=== PATIENT | female | born 1930 | race Caucasian/White ===

== ENCOUNTER 2016-05-28 09:28 | Outpatient (CLI) | payer MEDICARE, OTHER ==
[2016-05-28 10:38] LABS: ALT (SGPT) 15 U/L (0-55); AST (SGOT) 21 U/L (5-34); Alkaline Phosphatase 92 U/L (40-150); Anion Gap 13 mmol/L (10-20); BUN (Urea Nitrogen) 19 mg/dL (9.8-20.1); Bilirubin, Total 0.7 mg/dL (0.2-1.2); Calc. Creatinine Clearance 0 mL/min (70-130); Calcium 9.5 mg/dL (7.8-10.44); Carbon Dioxide 32 mmol/L (23-31); Chloride 104 mmol/L (98-107); Estimated GFR-MDRD 42; Globulin 2.8 g/dL (2.4-3.5); LDL Cholesterol, Calculated 63 mg/dL; Protein, Total 6.4 g/dL (5.8-8.1)
== END 2016-05-28 09:29 | disposition home or self-care (01) ==
LOC: BURLAB 09:28
PROVIDERS: ATTEND Internal Medicine Cardiovascular Disease
DX: I25.10 Atherosclerotic heart disease of native coronary artery without angina pectoris (principal)
CPT/HCPCS: 36415; 80053; 80061

== ENCOUNTER 2016-06-04 10:02 | Outpatient (CLI) | payer MEDICARE, OTHER ==
[2016-06-04 11:49] LABS: AST (SGOT) 24 U/L (5-34); Anion Gap 18 mmol/L (10-20); Bilirubin, Total 0.5 mg/dL (0.2-1.2); Calcium 9.1 mg/dL (7.8-10.44); Carbon Dioxide 25 mmol/L (23-31); Chloride 106 mmol/L (98-107)
[2016-06-04 12:03] LABS: Hemoglobin A1c 6.5 % (4.0-6.0)
[2016-06-04 12:04] LABS: ALT (SGPT) 20 U/L (0-55); Alkaline Phosphatase 92 U/L (40-150); BUN (Urea Nitrogen) 24 mg/dL (9.8-20.1); Calc. Creatinine Clearance 0 mL/min (70-130); Estimated GFR-MDRD 39; Globulin 2.9 g/dL (2.4-3.5); Protein, Total 6.6 g/dL (5.8-8.1)
[2016-06-04 13:19] LABS: LDL Cholesterol, Calculated 64 mg/dL
== END 2016-06-04 10:03 | disposition home or self-care (01) ==
LOC: BURLAB 10:02
PROVIDERS: ATTEND Family Medicine
DX: E11.9 Type 2 diabetes mellitus without complications (principal)
CPT/HCPCS: 36415; 80053; 80061; 83036

== ENCOUNTER 2016-08-27 09:21 | Outpatient (CLI) | payer MEDICARE, OTHER ==
[2016-08-27 10:03] LABS: Hemoglobin A1c 6.7 % (4.0-6.0)
== END 2016-08-27 09:22 | disposition home or self-care (01) ==
LOC: BURLAB 09:21
PROVIDERS: ATTEND Family Medicine
DX: E11.9 Type 2 diabetes mellitus without complications (principal); R53.83 Other fatigue
CPT/HCPCS: 36415; 83036; 84443

== ENCOUNTER 2016-10-22 10:11 | Outpatient (CLI) | payer MEDICARE, OTHER ==
[2016-10-22 11:37] LABS: Anion Gap 16 mmol/L (10-20); BUN (Urea Nitrogen) 41 mg/dL (9.8-20.1); Calc. Creatinine Clearance 0 mL/min (70-130); Calcium 9.3 mg/dL (7.8-10.44); Carbon Dioxide 25 mmol/L (23-31); Chloride 103 mmol/L (98-107); Estimated GFR-MDRD 29; Glucose 183 mg/dL (83-110); Potassium 4.4 mmol/L (3.5-5.1); Sodium 140 mmol/L (136-145)
[2016-10-22 12:15] LABS: Hemoglobin 11.3 g/dL (12.0-16.0); Mean Corpuscular HGB CONC 33.3 g/dL (32.0-36.0); Mean Corpuscular Hemoglobin 28.4 pg (27.0-31.0); Mean Corpuscular Volume 85.1 fl (81.0-99.0); Mean Platelet Volume 5.9 fL (7.4-10.4); Platelet Count 555 thou/uL (130-400); Red Blood Cell (RBC) Count 3.98 mill/uL (4.20-5.40); White Blood Cell (WBC) Count 12.5 thou/uL (4.8-10.8)
[2016-10-22 17:30] LABS: Phosphorus 3.8 mg/dL (2.3-4.7)
== END 2016-10-22 10:12 | disposition home or self-care (01) ==
LOC: BURLAB 10:11
PROVIDERS: ATTEND Internal Medicine Nephrology
DX: I12.9 Hypertensive chronic kidney disease with stage 1 through stage 4 chronic kidney disease, or unspecified chronic kidney disease (principal); N18.4 Chronic kidney disease, stage 4 (severe)
CPT/HCPCS: 36415; 80048; 82306; 83970; 84100; 85027